=== PATIENT | female | born 1985 | race African-American/Black ===

== ENCOUNTER 2022-09-11 09:40 | Outpatient (CLI) | payer OTHER | END 2022-09-11 09:41 | disposition home or self-care (01) | LOC: CSHULT 09:40 | PROVIDERS: ATTEND Advanced Practice Midwife | DX: Z34.92 Encounter for supervision of normal pregnancy, unspecified, second trimester (principal); Z3A.23 23 weeks gestation of pregnancy | CPT/HCPCS: 76805 ==

== ENCOUNTER 2022-12-30 13:12 | Observation (INO) | payer OTHER ==
[~2022-12-30 13:12] MED LIST: Iopamidol 370 76% 100 ML VIAL ONE
[2022-12-30] MEDS ORDERED: Ondansetron PF 4 MG/2 ML Vial ONE (13:59)
[2022-12-30] MEDS ORDERED: Morphine 4 MG/ML VIAL ONE ×2 (13:59→19:27)
[2022-12-30 14:03] LABS: Bilirubin Neg (Negative); Blood, Urine 150 (Negative); Clarity Slightly Cloudy (Clear); Glucose, Urine (Dipstick) Normal (Negative); Ketone, Urine Negative (Negative); Leukocyte 100 (Negative); Nitrite Negative (Negative); Protein, Urine (Dipstick) 15 mg/dl (Neg-Trace); Specific Gravity, Urine 1.015 (1.005-1.030); pH, Urine 6.5 (5.0-9.0)
[2022-12-30 14:12] LABS: Bacteria/HPF Rare-Few HPF (None Seen); CAUTI Indications for Culture Pelvic or flank pain; Mucous/LPF Rare LPF (<2+); RBC/HPF 0-3 HPF (0-3); Urine Culture Reflex No No
[2022-12-30] MEDS ORDERED: Ketorolac Tromethamine 30 MG/ML VIAL ONE (14:36)
[2022-12-30] MEDS ORDERED: fentaNYL 50 mcg/mL 1 mL Vial ONE (14:36)
[2022-12-30 15:02] LABS: #Eosinphils 0.1 10x3/uL (0.0-0.5); #Monocytes 0.5 10x3/uL (0.0-1.1); #Neutrophils 6.9 10x3/uL (1.5-8.4); %Basophils 0.1 % (0.0-2.0); %Eosinophils 0.8 % (0.0-6.0); %Monocytes 5.9 % (0.0-10.0); %Neutrophils 74.8 % (40.0-75.0); Hemoglobin 10.8 g/dL (12.0-15.5); Mean Corpuscular HGB CONC 30.9 g/dL (32.0-36.0); Mean Corpuscular Hemoglobin 26.6 pg (27.0-33.0); Mean Corpuscular Volume 86.2 fl (81.6-98.3); Mean Platelet Volume 10.4 fl (7.4-10.4); Platelet Count 243 10x3/uL (150-450); RBC Distribution Width 14.6 % (11.5-14.5); Red Blood Cell (RBC) Count 4.06 10x6/uL (3.90-5.03); White Blood Cell (WBC) Count 9.2 10x3/uL (3.5-10.5)
[2022-12-30 15:20] LABS: ALT (SGPT) 18 U/L (8-55); AST (SGOT) 12 U/L (5-34); Albumin 3.3 g/dL (3.5-5.0); Alkaline Phosphatase 92 U/L (40-110); Anion Gap 13 mmol/L (10-20); BUN (Urea Nitrogen) 8 mg/dL (7.0-18.7); Bilirubin, Total 0.6 mg/dL (0.2-1.2); Calc. Creatinine Clearance 0 mL/min (70-130); Calcium 8.1 mg/dL (7.8-10.44); Carbon Dioxide 21 mmol/L (22-29); Chloride 103 mmol/L (98-107); Estimated GFR 118; Globulin 3.7 g/dL (2.4-3.5); Glucose 88 mg/dL (70-105); Lipase 8 U/L (8-78); Potassium 4.1 mmol/L (3.5-5.1); Sodium 133 mmol/L (136-145)
[2022-12-30 15:37] LABS: PTT 32.9 sec (22.0-33.0); Prothrombin Time 10.4 sec (9.5-12.1)
[2022-12-30] MEDS ORDERED: Ondansetron PF 4 MG/2 ML Vial IVP PRN (16:35)
[2022-12-30] MEDS ORDERED: Morphine 2 MG/ML VIAL ONE ×2 (18:24→20:27)
[2022-12-30 20:00] VITALS: BMI 30.9
[2022-12-30] MEDS ORDERED: Acetaminophen 325 MG TAB ONE (20:47)
[2022-12-30] MEDS: Morphine 2 MG/ML VIAL SLOW IVP PRN (20:49)
[2022-12-30] MEDS: Acetaminophen 325 MG TAB PO PRN (20:49)
[2022-12-31] MEDS ORDERED: Morphine 2 MG/ML VIAL ONE ×3 (02:03→10:16)
[2022-12-31] MEDS: Morphine 2 MG/ML VIAL SLOW IVP PRN ×3 (02:09→10:15)
[2022-12-31 02:34] LABS: #Monocytes 0.6 10x3/uL (0.0-1.1); #Neutrophils 6.8 10x3/uL (1.5-8.4); %Basophils 0.2 % (0.0-2.0); %Eosinophils 0.4 % (0.0-6.0); %Lymphocytes 17.7 % (18.0-47.0); %Monocytes 6.6 % (0.0-10.0); %Neutrophils 74.8 % (40.0-75.0); Hemoglobin 10.4 g/dL (12.0-15.5); Mean Corpuscular HGB CONC 30.3 g/dL (32.0-36.0); Mean Corpuscular Hemoglobin 26.1 pg (27.0-33.0); Mean Corpuscular Volume 86.2 fl (81.6-98.3); Mean Platelet Volume 10.9 fl (7.4-10.4); Platelet Count 232 10x3/uL (150-450); RBC Distribution Width 14.7 % (11.5-14.5); Red Blood Cell (RBC) Count 3.98 10x6/uL (3.90-5.03); White Blood Cell (WBC) Count 9.1 10x3/uL (3.5-10.5)
[2022-12-31] MEDS: Acetaminophen 325 MG TAB PO PRN (02:44)
[2022-12-31 02:58] LABS: Anion Gap 14 mmol/L (10-20); BUN (Urea Nitrogen) 7 mg/dL (7.0-18.7); Calc. Creatinine Clearance 161 mL/min (70-130); Calcium 8.4 mg/dL (7.8-10.44); Carbon Dioxide 19 mmol/L (22-29); Chloride 107 mmol/L (98-107); Estimated GFR 117; Glucose 132 mg/dL (70-105); Potassium 3.7 mmol/L (3.5-5.1); Sodium 136 mmol/L (136-145)
[2022-12-31] MEDS ORDERED: Acetaminophen 325 MG TAB ONE (04:19)
[2022-12-31] MEDS ORDERED: fentaNYL 50 mcg/mL 1 mL Vial SLOW IVP SCH (04:45)
[2022-12-31] MEDS ORDERED: fentaNYL 50 mcg/mL 1 mL Vial ONE ×2 (04:45→11:57)
[2022-12-31] MEDS ORDERED: HYDROmorphone 0.5 MG/0.5 ML SYRINGE SLOW IVP SCH (12:00)
[2022-12-31] MEDS ORDERED: methylPREDNISolone Sod Succ 40 MG VIAL IVP SCH (12:00)
[2022-12-31] MEDS ORDERED: methylPREDNISolone Sod Succ 40 MG VIAL ONE (12:04)
[2022-12-31] MEDS ORDERED: HYDROmorphone 0.5 MG/0.5 ML SYRINGE ONE (12:06)
[2022-12-31] MEDS ORDERED: predniSONE 20 MG TAB PO SCH (16:30)
[2022-12-31] MEDS ORDERED: predniSONE 20 MG TAB ONE (17:26)
[2023-01-01 17:03] VITALS: BP 120/77; TEMP 98.2
== END 2023-01-01 18:10 | disposition home or self-care (01) ==
LOC: CSHERS 13:12 → CSHERHOLD 16:35 → CSHTELE 12-31 17:39
PROVIDERS: ADMIT Internal Medicine; ATTEND Hospitalist
DX: I26.99 Other pulmonary embolism without acute cor pulmonale (principal); F17.210 Nicotine dependence, cigarettes, uncomplicated; Z79.01 Long term (current) use of anticoagulants
CPT/HCPCS: 36415; 71250; 71275; 74177; 80048; 80053; 81001; 83690; 85025; 85610; 85730; 94760; 96372; 96375; 96376; G0378; J1170; J1650; J1885; J2270; J2272; J2405; J2920; J3010; J7512; Q9967

== ENCOUNTER 2023-01-04 09:32 | Emergency (ER) | payer OTHER ==
[2023-01-04 09:57] LABS: #Eosinphils 0.1 10x3/uL (0.0-0.5); #Monocytes 0.5 10x3/uL (0.0-1.1); #Neutrophils 4.9 10x3/uL (1.5-8.4); %Basophils 0.1 % (0.0-2.0); %Eosinophils 1.4 % (0.0-6.0); %Lymphocytes 22.5 % (18.0-47.0); %Monocytes 7.1 % (0.0-10.0); %Neutrophils 68.6 % (40.0-75.0); Hemoglobin 10.7 g/dL (12.0-15.5); Mean Corpuscular HGB CONC 31.4 g/dL (32.0-36.0); Mean Corpuscular Hemoglobin 26.8 pg (27.0-33.0); Mean Corpuscular Volume 85.3 fl (81.6-98.3); Mean Platelet Volume 10.3 fl (7.4-10.4); Platelet Count 323 10x3/uL (150-450); RBC Distribution Width 14.7 % (11.5-14.5); White Blood Cell (WBC) Count 7.1 10x3/uL (3.5-10.5)
[2023-01-04 10:09] LABS: ALT (SGPT) 16 U/L (8-55); AST (SGOT) 13 U/L (5-34); Albumin 3.6 g/dL (3.5-5.0); Alkaline Phosphatase 83 U/L (40-110); Anion Gap 14 mmol/L (10-20); BUN (Urea Nitrogen) 11 mg/dL (7.0-18.7); Bilirubin, Total 0.3 mg/dL (0.2-1.2); Calc. Creatinine Clearance 0 mL/min (70-130); Calcium 8.3 mg/dL (7.8-10.44); Carbon Dioxide 20 mmol/L (22-29); Chloride 108 mmol/L (98-107); Estimated GFR 116; Globulin 3.2 g/dL (2.4-3.5); Glucose 104 mg/dL (70-105); Potassium 4.1 mmol/L (3.5-5.1); Protein, Total 6.8 g/dL (6.0-8.3); Sodium 138 mmol/L (136-145)
[2023-01-04] MEDS ORDERED: Iopamidol 370 76% 100 ML VIAL ONE (10:37)
[2023-01-04] MEDS ORDERED: Morphine 4 MG/ML VIAL ONE (10:42)
[2023-01-04] MEDS ORDERED: Ondansetron PF 4 MG/2 ML Vial ONE (10:42)
[2023-01-04] MEDS ORDERED: Ketorolac Tromethamine 30 MG/ML VIAL ONE (11:11)
== END 2023-01-04 14:22 | disposition home or self-care (01) ==
LOC: CSHERS 09:32
DX: I26.99 Other pulmonary embolism without acute cor pulmonale (principal); R07.9 Chest pain, unspecified; F17.210 Nicotine dependence, cigarettes, uncomplicated
CPT/HCPCS: 71045; 71275; 80053; 84484; 85025; 93005; 96374; 96375; J1885; J2270; J2405; Q9967